=== PATIENT | female | born 1980 ===

== ENCOUNTER → 2018-11-23 | Outpatient (CLI) | payer OTHER | END | disposition home or self-care (01) | LOC: RAH 13:53 | PROVIDERS: ATTEND Nurse Practitioner Family | DX: Z12.31 Encounter for screening mammogram for malignant neoplasm of breast (principal) | CPT/HCPCS: 77067 ==

== ENCOUNTER 2023-07-11 14:09 | Emergency (ER) | payer OTHER ==
[~2023-07-11] VITALS: Ht 162.6 cm; Wt 88.0 kg
[2023-07-11 14:21] VITALS: BP 113/70; PULSE 70; RESP 18; O2SAT 98
[2023-07-11] MEDS: ONDANSETRON 4MG INJ IV STA (16:09)
[2023-07-11] MEDS: MORPHINE 2 MG SYG IVP STA (16:14)
[2023-07-11] MEDS ORDERED: ACET-2079 PO (16:43)
[2023-07-11] MEDS: CEFAZOLIN SODIUM 1 GM VIAL IM STA (17:15)
== END 2023-07-11 17:27 | disposition home or self-care (01) ==
LOC: EDH 14:09
DX: S62.632A Displaced fracture of distal phalanx of right middle finger, initial encounter for closed fracture (principal); I10 Essential (primary) hypertension; Z98.890 Other specified postprocedural states; X58.XXXA Exposure to other specified factors, initial encounter; Y93.89 Activity, other specified; Y92.89 Other specified places as the place of occurrence of the external cause; Y99.8 Other external cause status
CPT/HCPCS: 99284; 96374; 96375; 73130; 29130; J0690; J2270; J2405